=== PATIENT | female | born 1960 | race Caucasian/White ===

== ENCOUNTER → 2018-07-19 | Outpatient (CLI) | payer OTHER ==
[2018-07-19] MEDS: ALBUTEROL SULFATE 2.5 MG/3 ML NEBU. NEB ONE (09:05)
== END | disposition home or self-care (01) ==
LOC: PF 08:14
PROVIDERS: ATTEND Internal Medicine
DX: R06.02 Shortness of breath (principal)
CPT/HCPCS: 94060; 94640; J7613